=== PATIENT | female | born 1980 | race Caucasian/White ===

== ENCOUNTER 2018-12-05 17:43 | Emergency (ER) | payer SELFPAY ==
[~2018-12-05] VITALS: Ht 152.4 cm; Wt 54.5 kg
[~2018-12-05 17:43] MED LIST: IBUP-1561 PO
[2018-12-05 17:51] VITALS: Ht 152.4 cm; Wt 54.5 kg
--- NOTE | 2018-12-05 17:58 | ERD ---
ER Documentation Chief Complaint Chief Complaint PT BIB RA FOR ETOH INTOXICATION, PT RESPONDS TO NAME WHEN CALLED, HOMELESS HPI The patient is a 38-year-old female, presenting to the ER because she was found intoxicated on the street, Accu-Chek was 100 by EMS. She is unable to provide any history because of intoxication. The history is obtained from chief concierge Past medical/surgical history/social history/review of systems: Unable to obtain due to her condition Medications Home Meds Active Scripts Ibuprofen* (Motrin*) 400 Mg Tab, 400 MG PO Q6H PRN for PAIN AND OR ELEVATED TEMP, #20 TAB Prov:RACHAEL LOPEZ 07/09/18 Allergies Allergies: Coded Allergies: No Known Allergy (Unverified , 04/03/16) PMhx/Soc History of Surgery: No Anesthesia Reaction: No Hx Neurological Disorder: No Hx Respiratory Disorders: No Hx Cardiac Disorders: No Hx Psychiatric Problems: Yes Hx Miscellaneous Medical Probl: No Hx Alcohol Use: Yes (DAILY) Hx Substance Use: Yes (marijuan, crack cocaine) Hx Tobacco Use: Yes Physical Exam Vitals Vital Signs Date Temp Pulse Resp B/P (MAP) Pulse Ox O2 O2 Flow FiO2 Time Delivery Rate 12/05/18 98.0 103 17 114/69 96 17:51 (84) Physical Exam Const: No acute distress. Unkempt Head: Atraumatic. Eyes: Normal Conjunctiva. ENT: Normal External Ears, Nose and Mouth. Neck: Full range of motion. No meningismus. Resp: Clear to auscultation bilaterally. Cardio: Regular rate and rhythm. Abd: Soft, non distended, normal bowel sounds, non tender. Skin: No petechiae or rashes. Back: No midline or flank tenderness. Ext: No cyanosis, or edema. Neur: Awake. Limited exam due to her condition Psych: Intoxicated Result Diagram: 12/05/18182112/05/181821 Results 24 hrs Laboratory Tests Test 12/05/18 18:22 12/05/18 18:44 White Blood Count 3.9 10^3/ul Red Blood Count 2.82 10^6/ul Hemoglobin 9.3 g/dl Hematocrit 29.0 % Mean Corpuscular Volume 102.8 fl Mean Corpuscular Hemoglobin 33.0 pg Mean Corpuscular Hemoglobin Concent 32.1 g/dl Red Cell Distribution Width 13.7 % Platelet Count 42 10^3/UL Mean Platelet Volume 10.5 fl Immature Granulocytes % 0.000 % Neutrophils % % Lymphocytes % % Monocytes % % Eosinophils % % Basophils % % Nucleated Red Blood Cells % 0.0 /100WBC Immature Granulocytes # 0.000 10^3/ul Neutrophils # 10^3/ul Lymphocytes # 10^3/ul Monocytes # 10^3/ul Eosinophils # 10^3/ul Basophils # 10^3/ul Nucleated Red Blood Cells # 10^3/ul Sodium Level 144 mmol/L Potassium Level 3.8 mmol/L Chloride Level 112 mmol/L Carbon Dioxide Level 22 mmol/L Anion Gap 10 Blood Urea Nitrogen 4 mg/dl Creatinine 0.50 mg/dl Est Glomerular Filtrat Rate mL/min > 60 mL/min Glucose Level 111 mg/dl Calcium Level 8.5 mg/dl Total Bilirubin 1.7 mg/dl Direct Bilirubin 0.00 mg/dl Indirect Bilirubin 1.7 mg/dl Aspartate Amino Transf (AST/SGOT) 76 IU/L Alanine Aminotransferase (ALT/SGPT) 23 IU/L Alkaline Phosphatase 237 IU/L Total Protein 9.3 g/dl Albumin 3.7 g/dl Globulin 5.60 g/dl Albumin/Globulin Ratio 0.66 Beta HCG, Quantitative < 2.4 mIU/ml Salicylates Level < 1.0 mg/dl Acetaminophen Level < 10.0 ug/ml Ethyl Alcohol Level 245.0 mg/dl Urine Color FRANKLIN Urine Clarity SLIGHTLY CLOUDY Urine pH 5.0 Urine Specific [place] 1.009 Urine Ketones NEGATIVE mg/dL Urine Nitrite POSITIVE mg/dL Urine Bilirubin NEGATIVE mg/dL Urine Urobilinogen 2+ mg/dL Urine Leukocyte Esterase 1+ Francisco/ul Urine Microscopic RBC 2 /HPF Urine Microscopic WBC 11 /HPF Urine Squamous Epithelial Cells FEW /HPF Urine Bacteria MANY /HPF Urine Mucus FEW /HPF Urine Hemoglobin 2+ mg/dL Urine Glucose NEGATIVE mg/dL Urine Total Protein NEGATIVE mg/dl Current Medications Medications Dose Sig/Marvin Start Time Status Last (Trade) Ordered Route PRN Stop Time Admin Dose Reason Admin Ceftriaxone 1 gm ONCE ONCE 12/05/18 DC 12/05/18 Sodium IM 19:30 19:41 (Rocephin) 12/05/18 19:31 Lidocaine 2.1 ml ONCE ONCE 12/05/18 12/05/18 (Xylocaine IM 20:00 19:42 1% (Mdv) 20 12/05/18 20:01 ml) Lidocaine 20 ml STK-MED 12/05/18 DC (Xylocaine ONCE .ROUTE 19:37 1% (Mdv) 12/05/18 19:38 ml) Procedures/MDM Brain CT is pending MEDICAL MAKING DECISION: The patient is a 38-year-old female, presenting with acute alcohol intoxication, acute cystitis, probable cirrhosis Urine culture was requested. He was treated with Rocephin 1 g IM for acute cystitis The differential diagnoses considered include but are not limited to alcohol intoxication, UTI, dehydration, electrolyte imbalance Departure Diagnosis: Primary Impression: Alcoholic intoxication Additional Impressions: UTI (urinary tract infection) Pancytopenia Cirrhosis Condition: Stable Comments If the brain CT is negative for any acute finding and the patient is ambulating and tolerating p.o. where she judy, she can be discharged with Bactrim DS I discussed the findings with the patient. I advised the patient to follow[place] [facility] [place] [facility] [place] sooner if needed and return if any concern. Disclaimer: Inadvertent spelling and grammatical errors are likely due to EHR/dictation software use and do not reflect on the overall quality of patient care. Also, please note that the electronic time recorded on this note does not necessarily reflect the actual time of the patient encounter. CAREY VARGAS MD Dec 05, 2018 17:58
[2018-12-05] MEDS ORDERED: CEFTRIAXONE 1 GM INJ IM ONE (19:30)
[2018-12-05] MEDS ORDERED: LIDOCAINE 1% (MDV) 20 ML INJ ONE (19:37)
[2018-12-05] MEDS ORDERED: SULF1TAB31 PO (20:00)
[2018-12-05] MEDS ORDERED: LIDOCAINE 1% (MDV) 20 ML INJ IM ONE (20:00)
[2018-12-06 03:00] VITALS: BP 123/80; PULSE 86; RESP 19
== END 2018-12-06 02:50 | disposition home or self-care (01) ==
LOC: E/R 17:43
DX: F10.129 Alcohol abuse with intoxication, unspecified (principal); N39.0 Urinary tract infection, site not specified; D61.818 Other pancytopenia; R94.02 Abnormal brain scan; Z59.0 Homelessness; Z87.891 Personal history of nicotine dependence
CPT/HCPCS: 70450; 80053; 80307; 81001; 84702; 85025; 87086; 96372; 99285; J0696